=== PATIENT | female | born 1965 | race Caucasian/White ===

== ENCOUNTER 2017-10-31 12:38 | Inpatient (IN) ==
--- NOTE | 2017-10-30 21:15 | MH ---
cc: Chapo Avila MD DATE OF ADMISSION: 10/31/2017 ADMITTING DIAGNOSES: Pelvic pain, uterine fibroids, right ovarian cyst and recurrent dysplasia. HISTORY OF PRESENT ILLNESS: The patient is a 52-year-old white female, para 2-0-0-2, with an LMP in 2014. 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 Her Pap smear in 06/2017 returned abnormal and colposcopy directed biopsies from 08/10/2017 returned CHERELLE 1 of the ecto/endocervix. She was seen by me for evaluation on 10/12/2017 regarding recurrent dysplasia and pelvic pain. Her ultrasound from 10/18/2017 showed uterine fibroids and a right ovarian cyst. She is now admitted for hysterectomy. PAST SURGICAL HISTORY: She had the cone biopsy for CIS in 1993. She had C-sections in 1997 and 2000. She had bilateral carpal tunnel releases in 2000. She had Lap-Band surgery 2005, cholecystectomy 2008, gastric bypass in 2011 with successful loss of over 160 pounds, steve burleson 2013. MEDICATIONS: 1. Omeprazole. 2. Claritin. ALLERGIES: CODEINE. TRANSFUSIONS: None. SOCIAL HISTORY: She is , homemaker. Alcohol: Occasional. Tobacco: None. Drugs: None. FAMILY HISTORY: Pertinent for mom having ovarian carcinoma at age 26, survived. REVIEW OF SYSTEMS: Pertinent for dysmenorrhea, pelvic pain, pelvic pressure. PHYSICAL EXAMINATION: GENERAL: This is a well-nourished, well-developed white female. VITAL SIGNS: Stable. HEENT: Normal. CHEST: Clear. HEART: Regular rate. BREASTS: Symmetrical. ABDOMEN: Benign. PELVIC: The vagina is atrophic. There is extensive scarring at the vaginal fornices with the cervix bound anteriorly. The uterus was enlarged to 12-week size. ASSESSMENT: As above, she is now admitted for a total abdominal hysterectomy/bilateral salpingo-oophorectomy. While in the office, I explained the procedures, the risks, benefits and complications including infection, injury and bleeding and possible delayed bowel recovery with previous surgery and the patient elected to proceed. MD GONZALEZ Parks/rosita , 08:48 PM , 08:56 PM
[~2017-10-31 12:38] MED LIST: Glycopyrrolate Inj 1 MG/5 ML Syringe IV.PUSH ONE; Ketorolac Inj 30 MG/ML (IVP) Vial IV.PUSH ONE; Lidocaine PF 1% Inj 5 ML Syringe INFILTRATN ONE; Neostigmine Inj 5 MG/5 ML Syringe IV.PUSH ONE
[2017-10-31] MEDS ORDERED: Metoprolol Tartrate 25 MG Tablet PO SCH (13:30)
[2017-10-31] MEDS ORDERED: Chlorhexidine Gluconate 2% 1 Pack (2 Cloths) TOPICAL SCH (13:30)
[2017-10-31] MEDS ORDERED: ceFAZolin 2 GM Premix Inj 2 GM/100 ML BAG IV.SIG ONE (13:43)
[2017-10-31] MEDS ORDERED: ceFAZolin 2 GM/NS 100 ML IV; Q8H IV.SIG SCH ×2 (14:00)
[2017-10-31] MEDS ORDERED: Sodium Chlor 0.9% Inj 500 ML IV.SIG SCH (14:00)
[2017-10-31] MEDS ORDERED: Dexmedetomidine Inj 200 MCG/2 ML Vial ONE (14:35)
[2017-10-31] MEDS ORDERED: Ketamine Inj 50 MG/5 ML Syringe IV.PUSH ONE (14:45)
[2017-10-31] MEDS ORDERED: Bupivacaine Liposomal PF 1.3% Inj 20 ML Vial ONE (16:34)
[2017-10-31] MEDS ORDERED: Naloxone Inj 0.4 MG/ML Vial IV.PUSH PRN ×2 (16:43→16:48)
[2017-10-31] MEDS ORDERED: HYDROmorphone PF Inj 2 MG/ML Vial IV.PUSH ONE (16:48)
[2017-10-31] MEDS ORDERED: HYDROmorphone PCA Inj 6 MG/30 ML PCA.VIAL PCA PRN (16:48)
[2017-10-31] MEDS ORDERED: KCL 20 mEq/D5W/NaCl 0.45% Inj 1,000 ML ONE (17:07)
[2017-10-31] MEDS ORDERED: HYDROmorphone PCA Inj 6 MG/30 ML PCA.VIAL PCA ONE (17:07)
[2017-10-31] MEDS ORDERED: fentaNYL Citrate Inj 100 MCG/2 ML Ampul ONE (17:15)
[2017-10-31 17:41] LABS: Hematocrit 35.1 % (35.0-46.0); Hemoglobin 12.2 gm/dL (11.6-15.3); Mean Corpuscular HGB Conc 34.9 % (32.0-36.0); Mean Corpuscular Hemoglobin 32.3 pg (27.0-34.0); Mean Corpuscular Volume 92.6 fL (80.0-100.0); Platelet Count 160 th/mm3 (150-450); Red Blood Count 3.79 mil/mm3 (4.00-5.30); Red Cell Distribution Width 12.6 % (11.6-17.2); White Blood Count 6.3 th/mm3 (4.0-11.0)
[2017-10-31] MEDS ORDERED: *Ondansetron Inj 4 MG/2 ML Vial PERIprocedural Use ONLY ONE (17:42)
[2017-10-31] MEDS ORDERED: *morphine SULFATE 4 MG/ML PERIprocedure ONLY ONE ×2 (17:42→18:09)
[2017-10-31] MEDS ORDERED: *Promethazine Inj 25 MG/ML Vial PERIprocedural use ONLY ONE (18:06)
[2017-10-31] MEDS ORDERED: *Meperidine Inj 25 MG/ML Vial PERIprocedural Use ONLY ONE (18:12)
[2017-10-31] MEDS: KCL 20 mEq/D5W/NaCl 0.45% Inj 1,000 ML IV.CONT SCH (18:19)
--- NOTE | 2017-10-31 18:36 | MP ---
cc: Chapo Avila MD DATE OF OPERATION: 10/31/2017 PREOPERATIVE DIAGNOSES: 1. Pelvic pain. 2. Uterine fibroids. 3. Right ovarian cyst. 4. Recurrent dysplasia. POSTOPERATIVE DIAGNOSES: 1. Pelvic pain. 2. Uterine fibroids. 3. Right ovarian cyst. 4. Recurrent dysplasia. PROCEDURE PERFORMED: Total abdominal hysterectomy/bilateral salpingo-oophorectomy. ANESTHESIA: General, ET. SURGEON: Chapo Avila MD [employer] TECHNICIAN: Louise Gonzalez ESTIMATED BLOOD LOSS: Less than 100 mL FLUIDS: 1.6 liters crystalloid. OBJECTIVE FINDINGS: Following the induction of adequate general endotracheal anesthesia, the patient was prepped and draped supine on the operating table in the usual sterile fashion, with the bladder being drained by Montero catheterization. The abdomen was opened through a Pfannenstiel incision using a knife to excise the midportion of her old abdominoplasty scar. This was carried down to the fascia. The fascia was opened transversely. Rectus muscle in the midline and the peritoneum opened sharply. At this point, it was possible to pack the bowels from the wound and the uterus could be elevated and held with Cinthya clamps on each cornua with a Banner handheld to retract inferiorly. The left round ligament was ligated with 0 Vicryl and cut. The left ovarian pedicle was isolated, triply clamped with Arpit, cut, and ligated x2 Vicryl, first with a free tie and a stick tie of Vicryl and then the same on the right side. The bladder flap was taken down sharply. Uterine vessels were skeletonized bilaterally, triply clamped on the left with Arpit, cut, and ligated x2 Vicryls on the right. The Mariangel clamp was used to take the cardinal uterosacral in succession clamping, cutting, and ligating with 0 Vicryl in Arpit fashion. The cervix was quite long and when we had gotten below the cervix, the anterior vaginal wall was opened sharply and the cervix excised from the vaginal cuff. This allowed the cervix, uterus, tubes and ovaries to be passed off for permanent study. Uterus had shown fibroids and a small right ovarian cyst. Each corner of the vaginal cuff was closed and suspended to the respective uterosacral ligament with a modified De Oliveira stitch of 0 Vicryl, and the remainder of the cuff was closed with a running locking stitch with 0 Vicryl. Irrigation was now performed. Ureters were inspected with good peristalsis. A lap was placed in the pelvis for 5 minutes. There was no bleeding. The lap was then removed. The operative sites were dusted with Arixtra. All retractors removed. Counts were correct, and the anterior peritoneum was closed with a running stitch of 2-0 Vicryl. The fascia closed with a running locking stitch of 0 Vicryl, corner to midline tied, after dusting the muscles with Arixtra. Subcutaneous was irrigated and closed with running 3-0 Vicryl. Skin with subcuticular 3-0 Monocryl. Dermabond with the Mersilene cover was placed. Counts were correct and the patient was to receive a TAP block and go to the recovery room. MD GONZALEZ Parks/ruiz/guy , 04:58 PM , 05:06 PM MTDBen
[2017-10-31] MEDS: Docusate Sodium 100 MG Capsule PO SCH (20:48)
[2017-10-31] MEDS: Ketorolac Inj 30 MG/ML (IVP) Vial IV.PUSH SCH (20:49)
[2017-10-31] MEDS ORDERED: Zolpidem Tartrate 5 MG Tablet PO PRN (21:00)
[2017-11-01 06:00] LABS: Baso % (Auto) 0.2 % (0.0-2.0); Eos % (Auto) 0.2 % (0.0-4.0); Hematocrit 38.1 % (35.0-46.0); Hemoglobin 13.1 gm/dL (11.6-15.3); Lymph # (Auto) 0.9 th/mm3 (1.0-4.8); Mean Corpuscular HGB Conc 34.4 % (32.0-36.0); Mean Corpuscular Hemoglobin 32.3 pg (27.0-34.0); Mean Corpuscular Volume 93.8 fL (80.0-100.0); Mean Platelet Volume 7.8 fL (7.0-11.0); Mono # (Auto) 0.5 th/mm3 (0.0-0.9); Mono % (Auto) 6.5 % (0.0-8.0); Neut # (Auto) 6.7 th/mm3 (1.8-7.7); Neut % (Auto) 82.1 % (16.0-70.0); Platelet Count 189 th/mm3 (150-450); Red Blood Count 4.06 mil/mm3 (4.00-5.30); Red Cell Distribution Width 12.7 % (11.6-17.2); White Blood Count 8.2 th/mm3 (4.0-11.0)
[2017-11-01 06:21] LABS: Calcium 8.6 mg/dL (8.5-10.1); Carbon Dioxide 26.5 meq/L (21.0-32.0); Potassium 4.9 meq/L (3.5-5.1)
[2017-11-01] MEDS: Ketorolac Inj 30 MG/ML (IVP) Vial IV.PUSH SCH ×2 (08:55→15:16)
[2017-11-01] MEDS: KCL 20 mEq/D5W/NaCl 0.45% Inj 1,000 ML IV.CONT SCH ×3 (08:58→23:42)
[2017-11-01] MEDS: Loratadine 10 MG Tablet PO SCH (10:40)
[2017-11-01] MEDS: Pantoprazole Sodium 20 MG DR Tablet PO SCH (10:41)
[2017-11-01] MEDS: Docusate Sodium 100 MG Capsule PO SCH ×2 (10:46→21:39)
[2017-11-01 21:39] VITALS: RESP 18
[2017-11-02 05:12] VITALS: O2SAT 97
[2017-11-02] MEDS: KCL 20 mEq/D5W/NaCl 0.45% Inj 1,000 ML IV.CONT SCH (07:25)
[2017-11-02] MEDS: Docusate Sodium 100 MG Capsule PO SCH (08:50)
[2017-11-02] MEDS: Loratadine 10 MG Tablet PO SCH (08:50)
[2017-11-02] MEDS: Pantoprazole Sodium 20 MG DR Tablet PO SCH (08:50)
[2017-11-02 09:41] VITALS: BP 103/53; PULSE 54; TEMP 98.2
--- NOTE | 2017-11-02 15:03 | MD ---
cc: Chapo Avila MD DATE OF DISCHARGE: 11/02/2017 ADMITTING DIAGNOSES: Pelvic pain, uterine fibroids, ovarian cyst and recurrent dysplasia. DISCHARGE DIAGNOSES: Pelvic pain, uterine fibroids, ovarian cyst and recurrent dysplasia. PROCEDURE: OSMAN-BSO on 10/31/2017. HISTORY OF PRESENT ILLNESS: The patient is a 52-year-old white female, para 2-0-0-2, admitted with complaints of pelvic pain, uterine fibroids, right ovarian cyst and recurrent dysplasia. Her past history is notable for an extensive cone biopsy in 1993 for CIS, recurrent dysplasia, CHERELLE 1 diagnosed 08/10/2017. She was seen by me on 10/12/2017 with complaints of recurrent dysplasia and pelvic pain. Ultrasound showed fibroids and ovarian cyst and she desired hysterectomy. Because of cervical scarring, previous C-sections admitted for OSMAN-BSO on 10/31/2017; did well postop. Discharged home in excellent condition on 11/02/2017 with normal postoperative course. She was advised NPV, light activity, no driving. She will follow her gastric bypass diet. She will call if any abnormal symptoms. She will take all of her routine medication at home; was given a script for Lortab 5 one p.o. every 4 hours p.r.n., #20. She reports that she tolerates this well despite a CODEINE ALLERGY. MD GONZALEZ Parks/mesha/guy , 08:42 AM , 08:48 AM
== END 2017-11-02 09:44 | disposition home or self-care (01) ==
LOC: HSDI 12:38 → H1EA 18:30
PROVIDERS: ADMIT Obstetrics & Gynecology; ATTEND Obstetrics & Gynecology